=== PATIENT | female | born 1995 | race Caucasian/White ===

== ENCOUNTER 2017-06-20 02:34 | Inpatient (IN) | payer BC ==
[~2017-06-20] VITALS: Ht 162.6 cm; Wt 74.8 kg
[2017-06-20] MEDS ORDERED: LIDOCAINE 2%HCL (LOCAL ANESTH.) INJ 20ML MDV ONE (03:30)
[2017-06-20] MEDS ORDERED: LIDOCAINE 1% HCL (LOCAL ANESTH.) INJ 20ML MDV XX ONE (03:45)
[2017-06-20] MEDS ORDERED: ACETAMINOPHEN 325 MG TAB PO PRN (03:45)
[2017-06-20 04:08] LABS: Basophils # (auto) 0 uL; Basophils % (auto) 0.1 % (0.0-2.0); Eosinophils # (auto) 0 uL; Monocytes # (auto) 0.5 uL
[2017-06-20 04:11] LABS: Eosinophils % (auto) 0.1 % (0.0-7.0); Hematocrit 35.1 % (36.0-46.0); Hemoglobin 11.7 g/dL (12.2-16.2); Lymphocytes # (auto) 0.9 uL; Mean Corpuscular Hgb Conc. 33.4 g/dL (32.0-36.0); Mean Corpuscular Volume 80.9 fL (80.0-100.0); Monocytes % (auto) 3.3 % (0.0-12.0); Neutrophils # (auto) 14.2 uL; Neutrophils % (auto) 90.5 % (37.0-80.0); Platelet Count (auto) 254 10^3/uL (140-450); Red Blood Cells 4.33 10^6/uL (4.0-5.20); Red Cell Distribution Width 14.7 % (11.8-14.3); White Blood Cell 15.7 10^3/uL (4.4-10.8)
[2017-06-20 04:35] LABS: Albumin 2.5 g/dL (3.4-5.0); BUN/Creatinine Ratio 13.7; Bilirubin, Total 0.4 mg/dL (0.2-1.0); Calcium 8.7 mg/dL (8.5-10.1); Potassium 3.6 mmol/L (3.5-5.1); Total Protein 7.7 g/dL (6.4-8.2); Uric Acid 5.2 mg/dL (2.6-6.0)
[2017-06-20] MEDS ORDERED: LACT. RINGERS/OXYTOCIN 20UNITS 1,000 ML IV SCH (04:39)
[2017-06-20 04:43] LABS: INR 0.83 (0.9-1.15); Partial Thromboplastin Time 28.5 sec (22.64-33.71)
[2017-06-20] MEDS: IBUPROFEN 600 MG TAB PO PRN ×2 (05:27→10:27)
[2017-06-20] MEDS ORDERED: LACTATED RINGER'S 1,000 ML IV ONE (05:30)
[2017-06-20 05:36] LABS: Alcohol, Urine < 3.0 mg/dL (0-5); Amphetamine Screen, Urine POSITIVE (NEGATIVE); Barbiturate Scree,Urine NEGATIVE (NEGATIVE); Benzodiazephine Screen, Urine NEGATIVE (NEGATIVE); Cannabinoid Screen, Urine POSITIVE (NEGATIVE); Cocaine Screen, Urine NEGATIVE (NEGATIVE); Opiate Scree,Urine NEGATIVE (NEGATIVE); Phencyclidine Screen, Urine NEGATIVE (NEGATIVE)
[2017-06-20 07:00] VITALS: BP 143/89
[2017-06-20 07:29] LABS: Fibrinogen 825.8 mg/dL (177-375)
[2017-06-20] MEDS ORDERED: OXYTOCIN 10UNIT/ML 1ML VIAL ONE (07:52)
[2017-06-20] MEDS ORDERED: LACT. RINGERS/OXYTOCIN 20UNITS 1,000 ML IV ONE (07:52)
[2017-06-20] MEDS ORDERED: PHISODERM TOP SOLN 240ML BTL TOP ONE ×2 (10:25→10:30)
[2017-06-20 12:00] VITALS: BP 125/73
[2017-06-20 15:54] VITALS: BP 133/80
[2017-06-20 20:04] VITALS: BP 136/68
[2017-06-20 23:34] VITALS: BP 132/75
[2017-06-21 03:08] LABS: RPR Non Reactive (Non Reactive)
[2017-06-21 04:06] VITALS: BP 109/64
[2017-06-21 08:30] VITALS: BP 108/46
[2017-06-21 10:14] LABS: Rubella Antibodies, IgG 4.15 index (Immune >0.99)
[2017-06-21] MEDS ORDERED: TUBERCULIN PPD 5 UNIT/0.1 ML ID ONE (10:30)
[2017-06-21 10:56] VITALS: BP 108/46
== END 2017-06-21 10:35 | disposition home or self-care (01) | DRG 775 ==
LOC: ER 02:34 → LDRP 03:13
PROVIDERS: ADMIT Specialist; ATTEND Specialist
PROC: 0HQ9XZZ Repair Perineum Skin, External Approach (ICD-10-PCS; principal; 2017-06-20)
PROC: 10E0XZZ Delivery of Products of Conception, External Approach (ICD-10-PCS; 2017-06-20)
DX: O36.4XX0 Maternal care for intrauterine death, not applicable or unspecified (principal); O99.324 Drug use complicating childbirth; Z37.1 Single stillbirth; F12.90 Cannabis use, unspecified, uncomplicated; F15.90 Other stimulant use, unspecified, uncomplicated; O77.0 Labor and delivery complicated by meconium in amniotic fluid; O62.3 Precipitate labor; O70.0 First degree perineal laceration during delivery; Z3A.37 37 weeks gestation of pregnancy
CPT/HCPCS: 36415; 59409; 80053; 80307; 83036; 84550; 85025; 85384; 85610; 85730; 86592; 86703; 86762; 86850; 86900; 86901; 87340; 96361; 96365; 99291; J2590

== ENCOUNTER 2018-11-03 04:20 | Emergency (ER) | payer BC ==
[~2018-11-03] VITALS: Ht 162.6 cm; Wt 81.6 kg
[2018-11-03 06:04] VITALS: BP 122/76
[2018-11-03] MEDS ORDERED: LIDOCAINE 1% (LOCAL ANESTH.) PF 5ml SDV ID ONE (07:15)
[2018-11-03] MEDS ORDERED: BACITRACIN TOP OINT 1 UD PKG TOP ONE (07:15)
[2018-11-03] MEDS ORDERED: TETANUS-DIPTH-ACEL PERTUSSIS 0.5ML SYRG IM ONE (07:45)
== END 2018-11-03 08:13 | disposition home or self-care (01) ==
LOC: ER 04:20
DX: S01.412A Laceration without foreign body of left cheek and temporomandibular area, initial encounter (principal); W22.8XXA Striking against or struck by other objects, initial encounter; Y93.89 Activity, other specified; Y99.8 Other external cause status; Y92.89 Other specified places as the place of occurrence of the external cause
CPT/HCPCS: 12011; 90471; 90715